=== PATIENT | male | born 1955 | race Hispanic/Latino ===

== ENCOUNTER → 2022-08-31 | Outpatient (CLI) | payer OTHER ==
[~2022-08-31] MED LIST: IOHEXOL 350 MG/ML 100ML INFUS..BTL IV ONE
== END | disposition home or self-care (01) ==
LOC: OIH 10:15
PROVIDERS: ATTEND Internal Medicine Gastroenterology
DX: C16.9 Malignant neoplasm of stomach, unspecified (principal); K76.89 Other specified diseases of liver
CPT/HCPCS: 71260; 74177; Q9967 ×2

== ENCOUNTER → 2023-01-07 | Outpatient (CLI) | payer OTHER ==
[~2023-01-07] MED LIST changes: +BUSP5TAB3 PO; +FAMO20TA8 PO; +HYDR-3422 PO; +HYDR25TA PO; -IOHEXOL 350 MG/ML 100ML INFUS..BTL IV ONE; +LEVO25CA4 PO; +LOSA100T59 PO; +PANT40TA54 PO; +SIMV-43 PO; +VENL150C4 PO
== END | disposition home or self-care (01) ==
LOC: RAH 08:53
PROVIDERS: ATTEND Surgery
DX: R13.10 Dysphagia, unspecified (principal); Z93.1 Gastrostomy status
CPT/HCPCS: 74240

== ENCOUNTER 2023-10-26 06:15 | Day surgery (SDC) | payer OTHER, MEDICARE ==
[2023-10-26] VITALS (11 sets, daily range): BP systolic 105–124; BP diastolic 62–77; PULSE 56–65; RESP 14–17
[~2023-10-26] VITALS: Ht 175.3 cm; Wt 79.8 kg
[~2023-10-26 06:15] MED LIST changes: -VENL150C4 PO; +VENL150C5 PO
[2023-10-26] MEDS: 0.9%NACL 1000ML 1,000 ML IV ONE (06:45)
[2023-10-26] MEDS ORDERED: PROPOFOL 10 MG/ML 20ML VIAL IV ONE (08:30)
== END 2023-10-26 09:40 | disposition home or self-care (01) ==
LOC: DAH 06:15 → ENDO 06:15
PROVIDERS: ATTEND Internal Medicine Gastroenterology
DX: R13.10 Dysphagia, unspecified (principal); K21.00 Gastro-esophageal reflux disease with esophagitis, without bleeding; C16.2 Malignant neoplasm of body of stomach; I10 Essential (primary) hypertension; E78.5 Hyperlipidemia, unspecified; E03.9 Hypothyroidism, unspecified; K22.89 Other specified disease of esophagus; Z79.899 Other long term (current) drug therapy
CPT/HCPCS: 43239; J7030 ×2; J2704; A4620; A4215 ×2; A4223; A4657; A4222; A4221; A4663; A4606; J3490

== ENCOUNTER → 2024-01-19 | Outpatient (CLI) | payer OTHER, MEDICARE ==
[~2024-01-19] MED LIST changes: -HYDR25TA PO
[2024-01-19 13:09] LABS: BASOPHILS # (AUTO) 0.05 K/uL (0.00-0.20); BASOPHILS % (AUTO) 0.8 % (0.0-5.0); EOSINOPHILS # (AUTO) 0.33 K/uL (0.00-0.70); EOSINOPHILS % (AUTO) 5.4 % (0.0-8.0); HEMATOCRIT 38.8 % (42-54); IMMATURE GRANULOCYTE ABSOLUTE 0.04 K/uL (0-1); LYMPHOCYTES # (AUTO) 1.9 K/uL (1.0-4.8); LYMPHOCYTES % (AUTO) 31.4 % (21.0-51.0); MEAN CORPUSCULAR HEMOGLOBIN 32.5 pg (27.0-33.0); MEAN CORPUSCULAR HGB CONC 34.8 g/dL (32.0-36.0); MEAN CORPUSCULAR VOLUME 93.3 fL (79-99); MONOCYTES # (AUTO) 0.4 K/uL (0.1-1.0); MONOCYTES % (AUTO) 6.1 % (3.0-13.0); NEUTROPHILS # (AUTO) 3.4 K/uL (1.8-7.7); NEUTROPHILS % (AUTO) 55.6 % (40.0-77.0); PLATELET COUNT (AUTO) 270 K/uL (130-400); RED BLOOD CELL COUNT(AUTO) 4.16 MIL/uL (4.50-6.20); RED CELL DISTRIBUTION WIDTH 12.6 % (11.0-15.5); WHITE BLOOD COUNT (AUTO) 6.1 K/uL (4.8-10.8)
[2024-01-19 13:27] LABS: % IRON SATURATION 44.2 % (30-44)
[2024-01-19 13:48] LABS: HEMOGLOBIN A1C 5.5 % (4.0-6.0)
[2024-01-19 13:53] LABS: ALBUMIN 4.5 g/dL (3.5-5.0); BILIRUBIN,TOTAL 0.6 mg/dL (0.2-1.0); CREATININE 1.2 mg/dL (0.5-1.3); POTASSIUM 4.2 mmol/L (3.5-5.1); THYROID STIMULATING HORMONE 4.01 uIU/mL (0.36-3.74); TOTAL PROTEIN, SERUM 8.1 g/dL (6.0-8.3)
== END | disposition home or self-care (01) ==
LOC: LAB 12:17
PROVIDERS: ATTEND Surgery
DX: C16.2 Malignant neoplasm of body of stomach (principal); K91.1 Postgastric surgery syndromes; R11.0 Nausea; R63.4 Abnormal weight loss; Z79.899 Other long term (current) drug therapy
CPT/HCPCS: 36415; 80053; 80061; 82306; 82607; 82728; 83001; 83036; 83540; 83550; 84439; 84443; 84590; 85025

== ENCOUNTER → 2024-01-25 | Outpatient (CLI) | payer OTHER, MEDICARE ==
[~2024-01-25] MED LIST changes: +IOHEXOL 350 MG/ML 100ML INFUS..BTL IV ONE
== END | disposition home or self-care (01) ==
LOC: RAH 07:43
PROVIDERS: ATTEND Surgery
DX: K82.8 Other specified diseases of gallbladder (principal); K57.30 Diverticulosis of large intestine without perforation or abscess without bleeding; R11.0 Nausea; R63.4 Abnormal weight loss; C16.2 Malignant neoplasm of body of stomach; K91.1 Postgastric surgery syndromes; N32.89 Other specified disorders of bladder; I70.0 Atherosclerosis of aorta; M47.815 Spondylosis without myelopathy or radiculopathy, thoracolumbar region
CPT/HCPCS: 74177; Q9967

== ENCOUNTER → 2024-03-14 | Outpatient (CLI) | payer OTHER, MEDICARE ==
[~2024-03-14] MED LIST changes: -IOHEXOL 350 MG/ML 100ML INFUS..BTL IV ONE
--- NOTE | 2024-03-14 13:43 | HMCIMG ---
NM HIDA WITH EF/CCK REASON: Abnormal Finding Diagnostic COMPARISON: None TECHNIQUE: Routine images are acquired following administration of 70 technetium 99 Choletec. Gallbladder ejection fraction was calculated following slow push administration of 1.6 mcg CCK. FINDINGS: There is normal hepatic parenchymal uptake. There is prompt excretion into the common duct and gallbladder. There is near complete clearing of hepatic activity at the conclusion of the exam. Time activity curve yields a gallbladder ejection fraction of 64%. This is within normal limits. IMPRESSION: 1. Normal hepatobiliary scan. 2. Normal gallbladder ejection fraction.
== END | disposition home or self-care (01) ==
LOC: RAH 10:49
PROVIDERS: ATTEND Student in an Organized Health Care Education/Training Program
DX: R93.2 Abnormal findings on diagnostic imaging of liver and biliary tract (principal)
CPT/HCPCS: 78227; A9537